=== PATIENT | male | born 1975 | race Hispanic/Latino ===

== ENCOUNTER 2018-10-01 19:48 | Inpatient (IN) | payer MEDICAID ==
--- NOTE | 2018-10-01 21:13 | C.PDOC ---
History Of Present Illness 43 year old male presents to the ED requesting detox for alcohol abuse. 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 Patient reports he drinks 3 paints of vodka and couple pf beer chasers a day. Patient denies SI/HI, hallucinations, injury, fall, trauma. <Geovanna Aguirre - Last Filed: 10/01/18 22:06> <Brenton Westfall - Last Filed: 10/01/18 21:13> History Per: Patient History/Exam Limitations: no limitations Onset/Duration Of Symptoms: Hrs Current Symptoms Are (Timing): Still Present Suicide/Self Injury Attempted (Context): None Modifying Factor(s): Alcohol Associated Symptoms: denies: Depression, Suicidal Thoughts, Suicidal Plan Recent travel outside of the [place]: No Additional History Per: Patient <Geovanna Aguirre - Last Filed: 10/01/18 22:06> Chief Complaint (Nursing): Substance Abuse Past Medical History Vital Signs: Last Vital Signs Temp 98.1 F 10/01/18 20:49 Pulse 91 H 10/01/18 20:49 Resp 14 10/01/18 20:49 BP 176/113 H 10/01/18 20:49 Pulse Ox 99 10/01/18 20:49 - Medical History PMH: Anxiety, Depression, HTN Denies: Diabetes, Hepatitis, HIV, Chronic Kidney Disease, Seizures, Sexually Transmitted Disease - [facility] Procedures DETOXIFICATION SERVICES FOR SUBSTANCE ABUSE TREATMENT (09/21/15) GROUP PSYCHOTHERAPY (06/16/15) INDIV PSYCHOTHERAPY FOR SUBSTANCE ABUSE TREATMENT, SUPPORT (09/21/15) - Social History Hx Alcohol Use: Yes Hx Substance Use: Yes - Immunization History Hx Tetanus Toxoid Vaccination: No Hx Influenza Vaccination: No Hx Pneumococcal Vaccination: No <Brenton Westfall - Last Filed: 10/01/18 21:13> Reviewed: Historical Data, Nursing Documentation, Vital Signs Vital Signs: Last Vital Signs Temp 98.1 F 10/01/18 21:42 Pulse 86 10/01/18 21:42 Resp 18 10/01/18 21:42 BP 153/71 H 10/01/18 21:42 Pulse Ox 99 10/01/18 21:42 - Medical History PMH: Anxiety, Depression, HTN Surgical History: No Surg Hx - [facility] Procedures DETOXIFICATION SERVICES FOR SUBSTANCE ABUSE TREATMENT (09/21/15) GROUP PSYCHOTHERAPY (06/16/15) INDIV PSYCHOTHERAPY FOR SUBSTANCE ABUSE TREATMENT, SUPPORT (09/21/15) Family History: States: Unknown Family Hx - Social History Hx Alcohol Use: Yes Hx Substance Use: Yes - Immunization History Hx Tetanus Toxoid Vaccination: No Hx Influenza Vaccination: No Hx Pneumococcal Vaccination: No <Geovanna Aguirre - Last Filed: 10/01/18 22:06> Review Of Systems Constitutional: Negative for: Fever, Chills Cardiovascular: Negative for: Chest Pain, Palpitations Respiratory: Negative for: Shortness of Breath Gastrointestinal: Negative for: Nausea, Vomiting, Abdominal Pain Skin: Negative for: Rash Neurological: Negative for: Weakness, Numbness Psych: Negative for: Depression, Suicidal ideation <TimothyGeovanna Reta - Last Filed: 10/01/18 22:06> Physical Exam - Physical Exam Appears: Non-toxic, No Acute Distress Skin: Normal Color, Warm, Dry Head: Atraumatic, Normacephalic Eye(s): bilateral: Normal Inspection Neck: Normal ROM, Supple Chest: Symmetrical Cardiovascular: Rhythm Regular Respiratory: Normal Breath Sounds, No Rales, No Rhonchi, No Wheezing Gastrointestinal/Abdominal: Soft, No Tenderness Extremity: Normal ROM, No Tenderness, No Swelling Neurological/Psych: Oriented x3, Normal Speech, Normal Cognition Gait: Steady <Geovanna Aguirre - Last Filed: 10/01/18 22:06> ED Course And Treatment O2 Sat by Pulse Oximetry: 99 <Brenton Westfall - Last Filed: 10/01/18 21:13> - Laboratory Results Result Diagrams: 10/01/18 21:34 10/01/18 21:34 Lab Results: Total Bilirubin 0.5 mg/dL (0.2-1.3) 10/01/18 21:34 AST 106 U/L (17-59) H 10/01/18 21:34 ALT 46 U/L (21-72) 10/01/18 21:34 Alkaline Phosphatase 96 U/L (38-126) 10/01/18 21:34 Total Protein 8.4 g/dL (6.3-8.3) H 10/01/18 21:34 Albumin 5.0 g/dL (3.5-5.0) 10/01/18 21:34 Globulin 3.5 gm/dL (2.2-3.9) 10/01/18 21:34 Albumin/Globulin Ratio 1.4 (1.0-2.1) 10/01/18 21:34 Urine Color Shyann (YELLOW) 10/01/18 21:34 Urine Clarity Hazy (Clear) 10/01/18 21:34 Urine pH 5.0 (5.0-8.0) 10/01/18 21:34 Ur Specific [place] 1.029 (1.003-1.030) 10/01/18 21:34 Urine Protein 1+ mg/dL (NEGATIVE) H 10/01/18 21:34 Urine Glucose (UA) Normal mg/dL (Normal) 10/01/18 21:34 Urine Ketones Negative mg/dL (NEGATIVE) 10/01/18 21:34 Urine Blood Negative (NEGATIVE) 10/01/18 21:34 Urine Nitrate Negative (NEGATIVE) 10/01/18 21:34 Urine Bilirubin Negative (NEGATIVE) 10/01/18 21:34 Urine Urobilinogen 2.0 mg/dL (0.2-1.0) 10/01/18 21:34 Ur Leukocyte Esterase Neg Mansi/uL (Negative) 10/01/18 21:34 Urine WBC (Auto) 3 /hpf (0-5) 10/01/18 21:34 Urine RBC (Auto) 1 /hpf (0-3) 10/01/18 21:34 Hyaline Casts 6-10 /lpf (0-2) H 10/01/18 21:34 O2 Sat by Pulse Oximetry: 99 (ON RA) Pulse Ox Interpretation: Normal <Geovanna Aguirre - Last Filed: 10/01/18 22:06> Medical Decision Making Medical Decision Making: Plan: * Labs * UA <Geovanna Aguirre - Last Filed: 10/01/18 22:06> Disposition <Brenton Westfall - Last Filed: 10/01/18 21:13> <Geovanna Aguirre - Last Filed: 10/01/18 22:06> - Disposition Forms: [facility] (Bengali) - Scribe Statement The provider has reviewed the documentation as recorded by the Scribe Saud Vicente All medical record entries made by the Scribe were at my direction and personally dictated by me. I have reviewed the chart and agree that the record accurately reflects my personal performance of the history, physical exam, medical decision making, and the department course for this patient. I have also personally directed, reviewed, and agree with the discharge instructions and disposition. <Geovanna Aguirre - Last Filed: 10/01/18 22:06>
[2018-10-01 21:39] LABS: BASO # 0.1 K/uL (0.0-0.2); BASO % 0.9 % (0.0-2.0); EOS # 0.1 K/uL (0.0-0.7); EOS % 1.4 % (0.0-4.0); HEMOGLOBIN 15.2 g/dL (12.0-18.0); LYMPH # 1.1 K/uL (1.0-4.3); LYMPH % 13.1 % (20.0-40.0); MEAN CELL VOLUME 93.1 fL (80.0-94.0); MEAN CORPUSCULAR HEMOGLOBIN 31.9 pg (27.0-31.0); MEAN CORPUSCULAR HGB CONC 34.2 g/dL (33.0-37.0); MEAN PLATELET VOLUME 8.5 fL (7.2-11.7); MONO # 0.6 K/uL (0.0-0.8); MONO % 7.7 % (0.0-10.0); NEUT # 6.5 K/uL (1.8-7.0); NEUT % 76.9 % (50.0-75.0); NRBC % 0.1 % (0.0-2.0); RBC 4.76 Mil/uL (4.40-5.90); RED CELL DISTRIBUTION WIDTH 13.7 % (11.5-14.5); WHITE BLOOD COUNT 8.4 K/uL (4.8-10.8)
[2018-10-01 21:43] LABS: URINE BILIRUBIN NEGATIVE (NEGATIVE); URINE BLOOD NEGATIVE (NEGATIVE); URINE CLARITY Hazy (Clear); URINE COLOR Amber (YELLOW); URINE GLUCOSE (UA) NORMAL (Normal); URINE LEUKOCYTE ESTERASE NEG Leu/uL (Negative); URINE PROTEIN 1+ mg/dL (NEGATIVE)
[2018-10-01 21:53] LABS: ALB/GLOB RATIO 1.4 (1.0-2.1); ALT/SGPT 46 U/L (21-72); AST/SGOT 106 U/L (17-59); BLOOD UREA NITROGEN 13 mg/dL (9-20); CALCIUM 9.5 mg/dl (8.6-10.4); GFR NON-AFRICAN AMERICAN > 60
[2018-10-01 22:02] LABS: BARBITURATES, UR NEGATIVE (NEGATIVE); BENZODIAZEPINES, UR NEGATIVE (NEGATIVE); PHENCYCLIDINE, UR NEGATIVE (NEGATIVE)
[2018-10-01 22:04] LABS: OPIATES, UR POSITIVE (NEGATIVE)
--- NOTE | 2018-10-01 22:07 | C.PDOC ---
History Of Present Illness 43 year old male presents to the ED requesting alcohol detox. 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 Patient states he usually drinks 3 paints of vodka and beer chasers everyday. Patient denies SI/HI, hallucinations, injury, fall, trauma. Time Seen by Provider: 10/01/18 21:13 Chief Complaint (Nursing): Substance Abuse History Per: Patient History/Exam Limitations: no limitations Onset/Duration Of Symptoms: Hrs Current Symptoms Are (Timing): Still Present Suicide/Self Injury Attempted (Context): None Modifying Factor(s): Alcohol Associated Symptoms: denies: Depression, Suicidal Thoughts, Suicidal Plan Recent travel outside of the [place]: No Additional History Per: Patient Past Medical History Reviewed: Historical Data, Nursing Documentation, Vital Signs Vital Signs: Last Vital Signs Temp 98.1 F 10/01/18 21:42 Pulse 86 10/01/18 21:42 Resp 18 10/01/18 21:42 BP 153/71 H 10/01/18 21:42 Pulse Ox 99 10/01/18 22:06 - Medical History PMH: Anxiety, Depression, HTN Denies: Diabetes, Hepatitis, HIV, Chronic Kidney Disease, Seizures, Sexually Transmitted Disease Surgical History: No Surg Hx - [facility] Procedures DETOXIFICATION SERVICES FOR SUBSTANCE ABUSE TREATMENT (09/21/15) GROUP PSYCHOTHERAPY (06/16/15) INDIV PSYCHOTHERAPY FOR SUBSTANCE ABUSE TREATMENT, SUPPORT (09/21/15) Family History: States: Unknown Family Hx - Social History Hx Alcohol Use: Yes Hx Substance Use: Yes - Immunization History Hx Tetanus Toxoid Vaccination: No Hx Influenza Vaccination: No Hx Pneumococcal Vaccination: No Review Of Systems Constitutional: Negative for: Fever, Chills Cardiovascular: Negative for: Chest Pain Respiratory: Negative for: Shortness of Breath Gastrointestinal: Negative for: Nausea, Vomiting, Abdominal Pain Skin: Negative for: Rash Neurological: Negative for: Weakness, Numbness Psych: Negative for: Depression, Suicidal ideation Physical Exam - Physical Exam Appears: Non-toxic, No Acute Distress Skin: Normal Color, Warm, Dry Head: Atraumatic, Normacephalic Eye(s): bilateral: Normal Inspection Neck: Normal ROM, Supple Chest: Symmetrical Cardiovascular: Rhythm Regular Respiratory: Normal Breath Sounds, No Rales, No Rhonchi, No Wheezing Gastrointestinal/Abdominal: Soft, No Tenderness Extremity: Normal ROM, No Tenderness, No Swelling Neurological/Psych: Oriented x3, Normal Speech, Normal Cognition Gait: Steady ED Course And Treatment - Laboratory Results Result Diagrams: 10/01/18 21:34 10/01/18 21:34 Lab Results: Total Bilirubin 0.5 mg/dL (0.2-1.3) 10/01/18 21:34 AST 106 U/L (17-59) H 10/01/18 21:34 ALT 46 U/L (21-72) 10/01/18 21:34 Alkaline Phosphatase 96 U/L (38-126) 10/01/18 21:34 Total Protein 8.4 g/dL (6.3-8.3) H 10/01/18 21: Albumin 5.0 g/dL (3.5-5.0) 10/01/18 21: Globulin 3.5 gm/dL (2.2-3.9) 10/01/18 21: Albumin/Globulin Ratio 1.4 (1.0-2.1) 10/01/18 21:34 Urine Color Shyann (YELLOW) 10/01/18 21:34 Urine Clarity Hazy (Clear) 10/01/18 21:34 Urine pH 5.0 (5.0-8.0) 10/01/18 21:34 Ur Specific [place] 1.029 (1.003-1.030) 10/01/18 21:34 Urine Protein 1+ mg/dL (NEGATIVE) H 10/01/18 21:34 Urine Glucose (UA) Normal mg/dL (Normal) 10/01/18 21:34 Urine Ketones Negative mg/dL (NEGATIVE) 10/01/18 21:34 Urine Blood Negative (NEGATIVE) 10/01/18 21:34 Urine Nitrate Negative (NEGATIVE) 10/01/18 21:34 Urine Bilirubin Negative (NEGATIVE) 10/01/18 21:34 Urine Urobilinogen 2.0 mg/dL (0.2-1.0) 10/01/18 21:34 Ur Leukocyte Esterase Neg Mansi/uL (Negative) 10/01/18 21:34 Urine WBC (Auto) 3 /hpf (0-5) 10/01/18 21:34 Urine RBC (Auto) 1 /hpf (0-3) 10/01/18 21:34 Hyaline Casts 6-10 /lpf (0-2) H 10/01/18 21:34 Lab Interpretation: No Acute Changes (UDS + marijuana, opiates, ETOH 176) O2 Sat by Pulse Oximetry: 99 (ON RA) Pulse Ox Interpretation: Normal Medical Decision Making Medical Decision Making: Plan: * Labs * UA Disposition - Disposition Disposition: HOSPITALIZED Disposition Time: 22:45 Condition: STABLE - POA Present On Arrival: None - Clinical Impression Clinical Impression: Alcohol dependence - Scribe Statement The provider has reviewed the documentation as recorded by the Scribe Saud Vicente All medical record entries made by the Scribe were at my direction and personally dictated by me. I have reviewed the chart and agree that the record accurately reflects my personal performance of the history, physical exam, medical decision making, and the department course for this patient. I have also personally directed, reviewed, and agree with the discharge instructions and disposition.
--- NOTE | 2018-10-02 00:47 | PCM.BM ---
<Harshad Proctor - Last Filed: 10/02/18 00:45> Treatment Plan Problems - Problems identified on initial assessmt anxiety r/t substance use Date Initiated: 10/02/18 Time Initiated: 00:00 Assessment reference: NA Status: Active knowledge deficit r/t alcohol use Date Initiated: 10/02/18 Time Initiated: 00:00 Assessment reference: NA Status: Active Treatment assets and liabiliti Patient Assests: cooperative, self-reliant, physically healthy, cognitively in tact Patient Liabilities: substance abuse - Milieu Protocol Maintain good personal hygiene: daily Encourage regular showers, daily Remind patient to perform daily oral care, daily Assist patient to perform ADL's Maintain personal safety: every shift Educate patient to report safety concerns to staff, every shift Monitor environment for contraband/sharps Medication safety: Monitor for expected outcome, potential side effects: every shift, Assess barriers to learning: every shift, Assess readiness for medication education: every shift <Rosie Garduno - Last Filed: 10/03/18 15:51> Family Contact Family involvement: Family/SO is involved Family contact name: girlfriend Family contacted how many times per week?: 3 - Goals for Treatment Patient goals for treatment: Complete detox and transition to an IOP. Discharge/Continuing Care - Education Needs Education Needs: Patient Medication, Patient Diagnosis/Disease Process, Patient Coping Skills, Patient Anger Management skills, Patient Placement options, Patient Community resources - Discharge Discharge Criteria: No longer exhibiting s/s of withdrawal, Reduction of target symptoms Discharge to:: Home, With Family - Treatment Team Participation Patient/Family/SO Statement: 10/03/18 15:50 "I wanna do outpatient this time..." Discussed with Family/SO: No Was Patient/Family/SO present at Treatment Team Meeting: Yes
--- NOTE | 2018-10-02 09:33 | PCM.PSYCH ---
Initial Psychiatric Evaluation - Initial Psychiatric Evaluation Type of Admission: Voluntary Legal Status: Capacity Chief Complaint (in patient's own words): "I am withdrawing" History of Present Illness and Precipitating Events: The patient is seen, chart reviewed and case discussed. This is a 43-year-old male, with a 4-year-old son who does not live with him. The patient says he is homeless and he bounces around. 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 The patient is here for alcohol and heroin detox. He uses half or one bundle of heroin both IV and intranasally, as well as 5 or 6 of the 30 mg OxyContin's. He started 30 years ago and he had a 7-year clean time in his 30s. He was in detox 12 times and rehab 3 or 4 times. He did use Suboxone and methadone but not from a program, only from the streets. He also drinks up to 3 pints of vodka every day and he reports withdrawal symptoms from both opioids and alcohol. He threw up, has chills cramps and severe anxiety, tremors. He feels agitated and nauseous. His COWS is not as high likely due to oxycodone use but CIWA seems to be about above 10 The patient states that he had DTs in the past, within 12 months. He also uses cocaine, methamphetamines daily and cigarettes. Currently he feels depressed sometimes hopeless and very anxious and he reports he had lost his son and that was a trauma for him. His ex- took their son to [place] and the patient lost contact. He feels very depressed about that Medical: He has high blood pressure but he failed to follow-up because of his us e. Same with psoriasis and asthma. He also had has GERD Family psych: Brother had schizophrenia and mother had depression and alcoholism. Current Medications: Active Medications Generic Name Dose Route Start Last Admin Trade Name Freq PRN Reason Stop Dose Admin Clonidine HCl 0.1 mg 10/01/18 23:11 10/01/18 23:41 Catapres PO 0.1 mg Q6 PRN Administration Symptoms of alcohol withdrawl Hydroxyzine HCl 50 mg 10/01/18 23:09 Atarax PO Q6 PRN Anxiety Ibuprofen 600 mg 10/01/18 23:10 Motrin Tab PO Q6 PRN Pain, moderate (4-7) Trazodone HCl 50 mg 10/01/18 23:10 Desyrel PO HS PRN Insomnia Past Psychiatric History - Past Psychiatric History Previous Treatment History: Intensive Outpatient Pertinent Medical Hx (Current Medical&Sleep Prob, Allergies): Allergies Allergy/AdvReac Type Severity Reaction Status Date / Time No Known Allergies Allergy Verified 10/01/18 20:51 Albuterol HFA [Ventolin HFA 90 mcg/actuation (8 g)] 1 puff INH RQ4 PRN #1 inhaler 09/24/15 Citalopram [celEXA] 20 mg PO DAILY #30 tab 09/24/15 Pantoprazole [Protonix EC Tab] 40 mg PO DAILY #30 ect 09/24/15 QUEtiapine [SEROquel] 50 mg PO HS #30 tab 09/24/15 amLODIPine [Norvasc] 5 mg PO DAILY #30 tab 09/24/15 Review of Systems - Psychiatric Psychiatric: Abnormal Sleep Pattern, Anhedonia, Anxiety, Change in Appetite, Depression, Difficulty Concentrating, Hopelessness, Irritability, Suicidal Ideation (very vague and passive). absent: Hallucinations, Homicidal Ideation, Panic Attacks, Paranoia Mental Status Examination - Personal Presentation Personal Presentation: Looks stated age - Affect Affect: Constricted - Motor Activity Motor Activity: Calm - Reliability in Providing Information Reliability in Providing Information: Good - Speech Speech: Organized - Mood Mood: Depressed, Anxious - Formal Thought Process Formal Thought Process: No Impairment - Cognitive Functions Orientation: Person, Place, Situation, Time Sensorium: Alert Attention/Concentration: Easily distracted Estimate of Intelligence: Average Judgement: Intact, as evidence by: Insight regarding need for hospitalization Memory: Recent intact, as evidence by: Ability to recall events of the day, Remote intact, as evidenced by: Abilit to recall sig. life events - Risk Risk: Seizure (if not treated), Withdrawal, Diminished functioning - Strength & Assets Inventory Strength & Assets Inventory: Cooperative - Limitations Limitations: Other DSM 5 DX - DSM 5 DSM 5 Diagnosis: Opioid withdrawal Opioid use disorder, severe Alcohol withdrawal Alcohol use disorder, severe Stimulant use disorder, severe Cocaine use disorder, severe Tobacco use disorder, severe Major depressive disorder, severe Generalized anxiety disorder - Recommended/Plan of Treatment Treatment Recommendations and Plan of Treatment: Taper with Subutex or methadone for opioids Taper with Librium for alcohol Gabapentin for augmentation As needed medications All risks, benefits and alternatives of the meds discussed, and the pt agreed and understood. Attend groups and activities Supportive therapy and psychoeducation [facility] for abstinence CBT for relapse prevention Encourage MAT Refer to rehab or IOP, and self-help groups Teach healthy lifestyle methods, i.e. diet, exercise, meditation Smoking cessation with NH Nicotine patch if needed 34 min Projected ELOS: 5 days - Smoking Cessation Smoking Cessation Initiated: Yes
[2018-10-02] MEDS: Multiple Vitamins Tab PO SCH (11:00)
[2018-10-03] MEDS: Multiple Vitamins Tab PO SCH (10:45)
--- NOTE | 2018-10-03 12:59 | PCM.PYCHPN ---
Psychiatric Progress Note - Psychiatric Progress Note Patient Chief Complaint: "I am withdrawing" Medication Change: Yes Medical Record Reviewed: Yes Mental Status Examination - Cognitive Function Orientation: Person, Place, Situation, Time - Mood Mood: Depressed, Anxious - Affect Affect: Constricted - Formal Thought Process Formal Thought Process: No Impairment Goal/Treatment Plan - Goal/Treatment Plan Progress Toward Problem(s) and Goals/Treatment Plan: Taper with Subutex or methadone for opioids Taper with Librium for alcohol Gabapentin for augmentation As needed medications All risks, benefits and alternatives of the meds discussed, and the pt agreed and understood. Attend groups and activities Supportive therapy and psychoeducation [facility] for abstinence CBT for relapse prevention Encourage MAT Refer to rehab or IOP, and self-help groups Teach healthy lifestyle methods, i.e. diet, exercise, meditation Smoking cessation with [facility] Nicotine patch if needed 34 min
[2018-10-03] MEDS ORDERED: Magnesium Hydroxide Susp 30 ml UD PO ONE (17:31)
[2018-10-04] MEDS ORDERED: Magnesium Hydroxide Susp 30 ml UD PO ONE (10:51)
[2018-10-04] MEDS: Multiple Vitamins Tab PO SCH (10:52)
--- NOTE | 2018-10-04 14:35 | CP.PCM.PCO ---
Physician Communication Note - Physician Communication Note Physician Communication Note: Please see above
[2018-10-04] MEDS: Neomycin/Polymyxin/Hydrocort Otic Soln BOTTLE AU SCH ×2 (17:09→21:04)
[2018-10-04 20:19] VITALS: O2SAT 100
--- NOTE | 2018-10-04 23:11 | PCM.PYCHPN ---
Psychiatric Progress Note - Psychiatric Progress Note Patient seen today, length of contact: 15 minutes Patient Chief Complaint: I am not feeling much better. I still have withdrawal symptoms. Problems Identified/Issues Discussed: Patient seen, chart reviewed, case discussed with the staff. Issues related to illness and treatment were discussed with the patient and staff. Tolerating treatment very well. Reported compliant with treatment with no adverse effects. Patient reported feeling little better as patient has withdrawal symptoms including anxiety, decreased sleep, body aches, backache, tiredness, lethargic and sweating. Mood reported as anxious. Affect appropriate. Aftercare discussed with the patient. Patient denied any delusions, auditory or visual hallucinations, suicidal ideations or homicidal ideations at the time of evaluation. Medical Problems: Hypertension Asthma GERD Psoriasis Diagnostic Results: Reviewed Medication Change: No Medical Record Reviewed: Yes Mental Status Examination - Cognitive Function Orientation: Person, Place, Situation, Time Memory: Intact Attention: WNL Concentration: WNL Association: WN Fund of Knowledge: [facility] Decription of patient's judgement and insights: Fair - Mood Mood: Anxious - Affect Affect: Other (Appropriate) - Speech Speech: Appropriate - Formal Thought Process Formal Thought Process: No Impairment Psychotic Thoughts and Behaviors: Non - Suicidal Ideation Suicidal Ideation: No - Homicidal Ideation Homicidal Ideation: No Goal/Treatment Plan - Goal/Treatment Plan Need for Continued Stay: Remain at risks for inpatient hospitalization, Disc harge may exacerbated symptoms, Severe functional impairment Progress Toward Problem(s) and Goals/Treatment Plan: Patient education. Supportive therapy. CBT for relapse prevention. ME for abstinence. Continue treatment as before. Estimated Date of D/C: 10/06/18 - Smoking Cessation Smoking Cessation Initiated: No
[2018-10-05 05:53] VITALS: RESP 20
[2018-10-05 08:27] VITALS: BP 132/93; PULSE 103; TEMP 97.3
[2018-10-05] MEDS: Multiple Vitamins Tab PO SCH (09:03)
[2018-10-05] MEDS: Neomycin/Polymyxin/Hydrocort Otic Soln BOTTLE AU SCH (09:05)
--- NOTE | 2018-10-05 20:51 | PCM.PYCHDC ---
Mental Status Examination - Mental Status Examination Orientation: Person, Place, Situation, Time Memory: Intact Mood: Neutral Affect: Other (Appropriate) Speech: Appropriate Attention: WNL Concentration: WNL Association: WNL Fund of Knowledge: WNL Formal Thought Process: No Impairment Description of patient's judgement and insight: Fair Psychotic Thoughts and Behaviors: None Suicidal Ideation: No Current Homicidal Ideation?: No Discharge Summary - Discharge Note Reason for Hospitalization: Opioid withdrawal Opioid use disorder, severe Alcohol withdrawal Alcohol use disorder, severe Stimulant use disorder, severe Cocaine use disorder, severe Tobacco use disorder, severe Major depressive disorder, severe Generalized anxiety disorder Laboratory Data: Reviewed Consultations:: List each consultation separately and include: 1. Reason for request. 2. Findings. 3. Follow-up Summary of Hospital Course include:: 1. Description of specific treatment plan utilized for patients during their course of treatmen. 2. Summarize the time-course for resolution of acute symptoms and/or regressed behaviors. 3. Describe issues identified and worked on during hospitalization. 4. Describe medication utilized. 5. Describe medical problems identified and treated. 6. Reassessment of suicide risk Summary of Hospital Course: The patient is seen, chart reviewed and case discussed. This is a 43-year-old male, with a 4-year-old son who does not live with him. The patient says he is homeless and he bounces around. 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 The patient is here for alcohol and heroin detox. He uses half or one bundle of heroin both IV and intranasally, as well as 5 or 6 of the 30 mg OxyContin's. He started 30 years ago and he had a 7-year clean time in his 30s. He was in detox 12 times and rehab 3 or 4 times. He did use Suboxone and methadone but not from a program, only from the streets. He also drinks up to 3 pints of vodka every day and he reports withdrawal symptoms from both opioids and alcohol. He threw up, has chills cramps and severe anxiety, tremors. He feels agitated and nauseous. His COWS is not as high likely due to oxycodone use but CIWA seems to be about above 10 The patient states that he had DTs in the past, within 12 months. He also uses cocaine, methamphetamines daily and cigarettes. Currently he feels depressed sometimes hopeless and very anxious and he reports he had lost his son and that was a trauma for him. His ex- took their son to [place] and the patient lost contact. He feels very depressed about that Medical: He has high blood pressure but he failed to follow-up because of his use. Same with psoriasis and asthma. He also had has GERD Family psych: Brother had schizophrenia and mother had depression and alcoholism. During his stay in the hospital patient was treated with Librium taper for alcohol withdrawal symptoms and other PRN medications for other substance use. Patient was also attending groups and other activities on the unit. Today patient was stable, had no withdrawal symptoms and was ready for discharge from the hospital. At the time of evaluation and discharge, patient was awake, alert and oriented x3, had no delusions, no auditory or visual hallucinations. Patient was discharged in stable condition. - Final Diagnosis (DSM 5) Condition upon Discharge: STABLE Disposition: HOME/ ROUTINE - Smoking Cessation Smoking Cessation Medication prescribed: No - Antipsychotic Medications Pt discharged on 2 or more routine antipsychotic medications: No
== END 2018-10-05 10:55 | disposition home or self-care (01) | DRG 430 ==
LOC: C.ER 19:48 → C.7D 22:45 → OBSVTOIN 10-02 09:33
PROVIDERS: ADMIT Psychiatry & Neurology Psychiatry; ATTEND Psychiatry & Neurology Psychiatry
PROC: GZHZZZZ Group Psychotherapy (ICD-10-PCS; principal; 2018-10-02)
PROC: GZ56ZZZ Individual Psychotherapy, Supportive (ICD-10-PCS; 2018-10-02)
DX: F32.2 Major depressive disorder, single episode, severe without psychotic features (principal); F11.23 Opioid dependence with withdrawal; F10.231 Alcohol dependence with withdrawal delirium; F14.10 Cocaine abuse, uncomplicated; F15.10 Other stimulant abuse, uncomplicated; F17.200 Nicotine dependence, unspecified, uncomplicated; F41.1 Generalized anxiety disorder; I10 Essential (primary) hypertension; J45.909 Unspecified asthma, uncomplicated; Z59.0 Homelessness; L40.9 Psoriasis, unspecified; K21.9 Gastro-esophageal reflux disease without esophagitis